=== PATIENT | male | born 1960 ===

== ENCOUNTER 2018-11-01 09:57 | Outpatient (CLI) | payer OTHER ==
[~2018-11-01] VITALS: Ht 152.4 cm; Wt 111.1 kg
== END 2018-11-01 10:15 | disposition home or self-care (01) ==
LOC: OFIC 805 09:57
DX: H61.23 Impacted cerumen, bilateral (principal); G51.0 Bell's palsy; H90.3 Sensorineural hearing loss, bilateral

== ENCOUNTER 2018-11-20 10:09 | Outpatient (CLI) | payer OTHER ==
[~2018-11-20] VITALS: Ht 152.4 cm; Wt 111.1 kg
== END 2018-11-20 10:20 | disposition home or self-care (01) ==
LOC: OFIC 805 10:09
DX: G51.0 Bell's palsy (principal)

== ENCOUNTER 2019-01-03 11:05 | Outpatient (CLI) | payer OTHER ==
[~2019-01-03] VITALS: Ht 152.4 cm; Wt 111.1 kg
== END 2019-01-03 11:20 | disposition home or self-care (01) ==
LOC: OFIC 805 11:05
DX: G51.0 Bell's palsy (principal)

== ENCOUNTER 2019-03-24 13:58 | Emergency (ER) | payer OTHER ==
[~2019-03-24] VITALS: Ht 170.2 cm; Wt 111.1 kg
[2019-03-24] MEDS ORDERED: ULTRACET PO (16:50)
[2019-03-24] MEDS ORDERED: VOLTAREN-XR100 MG PO (16:50)
[2019-03-24] MEDS ORDERED: ANKLE BRACE1 EACH TOP (16:57)
== END 2019-03-24 18:52 | disposition home or self-care (01) ==
LOC: ER 13:58
DX: M65.871 Other synovitis and tenosynovitis, right ankle and foot (principal); M13.871 Other specified arthritis, right ankle and foot

== ENCOUNTER 2019-12-15 16:13 | Emergency (ER) | payer OTHER ==
[~2019-12-15] VITALS: Ht 180.3 cm; Wt 111.1 kg
[~2019-12-15 16:13] MED LIST: ANKLE BRACE1 EACH TOP; ULTRACET PO; VOLTAREN-XR100 MG PO
== END 2019-12-15 19:19 | disposition home or self-care (01) ==
LOC: ER 16:13
DX: S96.8 Injury of other specified muscles and tendons at ankle and foot level (principal); S96.811S Strain of other specified muscles and tendons at ankle and foot level, right foot, sequela; S62.002S Unspecified fracture of navicular [scaphoid] bone of left wrist, sequela; W18.39XS Other fall on same level, sequela

== ENCOUNTER → 2020-03-20 | Emergency (ER) | payer OTHER ==
[~2020-03-20] VITALS: Ht 180.3 cm; Wt 112.5 kg
[~2020-03-20] MED LIST changes: +AMOX1TAB5 PO; +INTESTINEX680 M2 PO; +KETO10TA2 PO; +ORPHENADRINE C100 MG PO
== END | disposition home or self-care (01) ==
LOC: ER 04:39
DX: S61.421A Laceration with foreign body of right hand, initial encounter (principal); S23.8XXA Sprain of other specified parts of thorax, initial encounter; W23.0XXA Caught, crushed, jammed, or pinched between moving objects, initial encounter; Y93.89 Activity, other specified; Y92.812 Truck as the place of occurrence of the external cause; Y99.8 Other external cause status

== ENCOUNTER 2020-03-31 14:45 | Emergency (ER) | payer OTHER ==
[~2020-03-31] VITALS: Ht 180.3 cm; Wt 112.5 kg
== END 2020-03-31 16:56 | disposition home or self-care (01) ==
LOC: ER 14:45
DX: Z48.02 Encounter for removal of sutures (principal); T81.89XA Other complications of procedures, not elsewhere classified, initial encounter

== ENCOUNTER 2020-04-05 13:36 | Emergency (ER) | payer OTHER ==
[~2020-04-05] VITALS: Ht 180.3 cm; Wt 112.5 kg
[2020-04-05] MEDS ORDERED: AZOR 10-20 MG1 EACH PO (13:54)
[2020-04-05] MEDS ORDERED: INTESTINEX680 M1 PO (15:43)
[2020-04-05] MEDS ORDERED: AMOX-CLAV 875-1 EACH PO (15:43)
== END 2020-04-05 16:02 | disposition home or self-care (01) ==
LOC: ER 13:36
DX: T81.49XA Infection following a procedure, other surgical site, initial encounter (principal); B95.61 Methicillin susceptible Staphylococcus aureus infection as the cause of diseases classified elsewhere; B96.5 Pseudomonas (aeruginosa) (mallei) (pseudomallei) as the cause of diseases classified elsewhere; Z48.02 Encounter for removal of sutures

== ENCOUNTER 2023-02-02 08:09 | Outpatient (CLI) | payer OTHER ==
[~2023-02-02 08:09] MED LIST changes: +AMOX-CLAV 875-1 EACH PO; +AZOR 10-20 MG1 EACH PO; +INTESTINEX680 M1 PO
== END 2023-02-02 08:27 | disposition home or self-care (01) ==
LOC: TOM 08:09 → MRI 08:09
PROVIDERS: ATTEND Internal Medicine
DX: M25.511 Pain in right shoulder (principal); M75.121 Complete rotator cuff tear or rupture of right shoulder, not specified as traumatic
CPT/HCPCS: 73223

== ENCOUNTER 2023-03-31 17:54 | Emergency (ER) | payer OTHER ==
[~2023-03-31] VITALS: Ht 175.3 cm; Wt 107.0 kg
== END 2023-03-31 22:09 | disposition home or self-care (01) ==
LOC: ER 17:54
DX: G51.0 Bell's palsy (principal)

== ENCOUNTER 2025-04-10 07:21 | Outpatient (CLI) | payer OTHER | END 2025-04-10 07:22 | disposition home or self-care (01) | LOC: NUCLEAR 07:21 | PROVIDERS: ATTEND Internal Medicine | DX: I11.9 Hypertensive heart disease without heart failure (principal); I42.9 Cardiomyopathy, unspecified ==